=== PATIENT | female | born 1975 | race Caucasian/White ===

== ENCOUNTER 2019-06-29 10:31 | Emergency (ER) | payer SELFPAY ==
[2019-06-29 10:33] VITALS: BP 144/82; PULSE 88; RESP 18; TEMP 36.7; O2SAT 98
[2019-06-29] MEDS: Normal Saline 1,000 ML 1000 ML IV (11:20)
[2019-06-29] MEDS: HYDROmorphone 2 MG/ML VIAL 1 MG IVP ×2 (11:28→12:06)
[2019-06-29] MEDS: Ondansetron 4 MG/2 ML VIAL IVP (11:28)
[2019-06-29 11:33] LABS: Abs Immature Grans 0.03 k/cumm (0.0-0.09); Absolute Lymphocyte Count 2.42 k/cumm (1.2-3.4); Basophils % 0.4; Eosinophils % 2.4; HGB 14.7 g/dL (12.0-15.5); Immature Grans % 0.2 %; Lymphocytes % 17.9; Mean Corp. HGB Concentration 33.4 g/dL (32.0-36.0); Mean Corpuscular Hemoglobin 31.7 pg (27.0-33.0); Mean Platelet Volume 9.3 fL (8.0-11.0); Monocytes % 6.4; Neutrophils % 72.7; Platelet Count 385 x1000/uL (130-400); RBC 4.63 m/cumm (4.00-5.20)
[2019-06-29 11:37] LABS: Absolute Basophil Count 0.05 k/cumm (0.0-0.2); Absolute Eosinophil Count 0.32 k/cumm (0.0-0.7); Absolute Monocyte Count 0.86 k/cumm (0.11-0.7); Absolute Neutrophil Count 9.81 k/cumm (1.2-6.7)
[2019-06-29 11:42] LABS: ALT 26 U/L (14-59); AST 17 U/L (15-37); Albumin 3.9 g/dL (3.4-5.0); Alkaline Phosphatase 83 U/L (46-116); Anion Gap 11.7 mmol/L (3-11); BUN 8 mg/dL (7-18); Bilirubin, Total 1.5 mg/dL (0.2-1.0); CO2 26.3 mmol/L (21.0-32.0); CREATININE 0.82 mg/dL (0.55-1.02); Calcium 8.4 mg/dL (8.5-10.1); Chloride 102 mmol/L (98-107); Glucose 169 mg/dL (74-106); Potassium 3.6 mmol/L (3.5-5.1); Sodium 140 mmol/L (136-145); Total Protein 7.6 g/dL (6.4-8.2)
[2019-06-29 11:46] LABS: PTT Activated 23.6 sec (21.0-31.4); Prothrombin Time 10.1 sec (9.3-11.0)
[2019-06-29] MEDS: Omnipaque 350 MG/ML 100 ML BTL IJ (12:35)
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
[2019-06-29 12:44] VITALS: BP 135/60; PULSE 65; RESP 18; TEMP 36.8; O2SAT 95
[2019-06-29] MEDS: Lidocaine 5% Patch 2 PATCH TP (13:55)
[2019-06-29 14:05] VITALS: BP 111/62; PULSE 59; TEMP 37; O2SAT 95
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
== END 2019-06-29 14:56 | disposition home or self-care (01) ==
PROVIDERS: Emergency Provider Physician Assistant
DX: S20.212A Contusion of left front wall of thorax, initial encounter (principal); S46.912A Strain of unspecified muscle, fascia and tendon at shoulder and upper arm level, left arm, initial encounter; V86.52XA Driver of snowmobile injured in nontraffic accident, initial encounter; Y93.29 Activity, other involving ice and snow; E11.9 Type 2 diabetes mellitus without complications; Z79.84 Long term (current) use of oral hypoglycemic drugs
CPT/HCPCS: 74177; 80053; 96361; 96374; 96375; 96376; 99285; 71260; 85025; 85610; 85730; 99284; J2405; J3490